=== PATIENT | male | born 1985 | race Two or more races ===

== ENCOUNTER 2017-07-29 19:58 | Emergency (ER) | payer MEDICAID ==
[~2017-07-29] VITALS: Ht 170.2 cm; Wt 108.9 kg
[~2017-07-29 19:58] MED LIST: ACYCLOVIR400 MG ORAL; IBUPROFEN600 MG ORAL; POLYTRIM OP SOL10 ML OPHTHALM; TAMIFLU75 MG ORAL
[2017-07-29 20:30] VITALS: BP 130/86
[2017-07-29] MEDS ORDERED: Morphine Sulfate 2mg/ml Inj IVP ONE (20:45)
[2017-07-29] MEDS ORDERED: Lidocaine 2% Visc 15ml soln ORAL ONE (20:45)
[2017-07-29] MEDS ORDERED: Mylanta II UD 30ml ORAL ONE (20:45)
[2017-07-29 21:35] LABS: BASOPHILS % (AUTO) 1.4 % (0.0-2.0); LYMPHOCYTES % (AUTO) 20.5 % (20.0-45.0); MEAN CORPUSCULAR HEMOGLOBIN 29.8 PG (27.0-31.0); MEAN CORPUSCULAR HGB CONC 31.2 G/DL (32.0-36.0); MEAN CORPUSCULAR VOLUME 95 FL (80-99); MEAN PLATELET VOLUME 7.3 FL (6.5-10.1); NEUTROPHILS % (AUTO) 70.2 % (45.0-75.0); PLATELET COUNT 230 K/UL (150-450); RED CELL DISTRIBUTION WIDTH 12.2 % (11.6-14.8); WHITE BLOOD COUNT 10.2 K/UL (4.8-10.8)
[2017-07-29 21:46] LABS: APPEARANCE,URINE CLEAR; KETONES,URINE NEGATIVE (NEGATIVE); LEUKOCYTE ESTERASE ,URINE NEGATIVE (NEGATIVE); NITRITE,URINE NEGATIVE (NEGATIVE); PH,URINE 6.5 (4.5-8.0); PROTEIN,URINE NEGATIVE (NEGATIVE); UROBILINOGEN,URINE NORMAL MG/DL (0.0-1.0)
[2017-07-29 21:59] LABS: ANION GAP 10 mmol/L (5-15); CALCIUM 9.4 MG/DL (8.5-10.1); CARBON DIOXIDE 27 MMOL/L (21-32); CHLORIDE 104 MMOL/L (98-107); CREATININE 0.9 MG/DL (0.55-1.30); GLOMERULAR FILTRATION RATE > 60 mL/min (>60); POTASSIUM 4.1 MMOL/L (3.5-5.1); SODIUM 141 MMOL/L (136-145)
[2017-07-29 22:04] LABS: ALANINE AMINOTRANSFERASE 295 U/L (12-78); ASPARTATE AMINO TRANSFERASE 120 U/L (15-37); LIPASE 132 U/L (73-393); TOTAL PROTEIN 7.9 G/DL (6.4-8.2)
[2017-07-29 22:05] VITALS: BP 132/87
--- NOTE | 2017-07-29 23:36 | Emergency Room Report ---
History of Present Illness General Chief Complaint: Abdominal Pain Source: Patient, Significant Other Present Illness HPI Patient with 2-3 days of RUQ pain. Constant and somewhat worsening. Radiates to back. 03/29. No vomiting. Does drink alcohol - beer, not every day. No vomit blood. No melena or blood in stool. No fevers. No medicines taken for pain. Never with this pain in the past. Today also felt dizzy and somewhat disoriented without headache or near syncope. No headache or change in vision. No joint pain, cough, chest pain, rashes. Allergies: Coded Allergies: NO KNOWN DRUG ALLERGIES (Unverified Allergy, Unknown, 08/17/14) Patient History Past Medical History: see triage record Social History: Reports: alcohol use, Denies: smoking, drug use Social History Narrative , works construction Reviewed Nursing Documentation: PMH: Agreed, PSxH: Agreed Nursing Documentation-PM Past Medical History: No Stated History Review of Systems All Other Systems: negative except mentioned in HPI Physical Exam Vital Signs Date Time Temp Pulse Resp B/P (MAP) Pulse Ox O2 Delivery O2 Flow Rate FiO2 07/29/17 20:01 99.3 91 18 141/87 99 Room Air Sp02 EP Interpretation: reviewed, normal General Appearance: well appearing, no apparent distress, GCS 15 Head: normocephalic Eyes: bilateral eye normal inspection, bilateral eye PERRL ENT: moist mucus membranes Neck: supple Respiratory: lungs clear, normal breath sounds Cardiovascular #1: regular rate, rhythm Cardiovascular #2: 2+ radial (R) Gastrointestinal: normal inspection, normal bowel sounds, no mass, non- distended, no guarding, no rebound, tenderness - RUQ, overweight Musculoskeletal: back normal, gait/station normal, normal range of motion Neurologic: alert, oriented x3, motor strength/tone normal, DTRs symmetric, sensory intact, normal gait, speech normal, grossly normal Psychiatric: mood/affect normal Skin: normal inspection, warm/dry Medical Decision Making Diagnostic Impression: Primary Impression: Abdominal pain Qualified Codes: R10.11 - Right upper quadrant pain ER Course Patient with RUQ pain. DDx: gastritis, PUD, mohit, GERD, diverticulitis, hepatitis amongst others. Evaluation with EKG, CXR, Abd films and labs. Treatment with IV hydration, pepcid, analgesia and mylanta/lidocaine. EKG without injury. CXR clear. ABD with increased gas. Labs with slight elevation of LFTS (and glucose). Normal WBC and H/H. Pain resolved with treatment. Discussed treatment plan. Considerations PUD/gastritis, gall bladder disease. Need for followup with PMD and possible GI consultation. Patient stable for outpatient observation and treatment. Laboratory Tests Test 07/29/17 21:13 White Blood Count 10.2 K/UL (4.8-10.8) Red Blood Count 5.40 M/UL (4.70-6.10) Hemoglobin 16.1 G/DL (14.2-18.0) Hematocrit 51.6 % (42.0-52.0) Mean Corpuscular Volume 95 FL (80-99) Mean Corpuscular Hemoglobin 29.8 PG (27.0-31.0) Mean Corpuscular Hemoglobin Concent 31.2 G/DL (32.0-36.0) L Red Cell Distribution Width 12.2 % (11.6-14.8) Platelet Count 230 K/UL (150-450) Mean Platelet Volume 7.3 FL (6.5-10.1) Neutrophils (%) (Auto) 70.2 % (45.0-75.0) Lymphocytes (%) (Auto) 20.5 % (20.0-45.0) Monocytes (%) (Auto) 7.0 % (1.0-10.0) Eosinophils (%) (Auto) 1.0 % (0.0-3.0) Basophils (%) (Auto) 1.4 % (0.0-2.0) Prothrombin Time 10.0 SEC (9.30-11.50) Prothrombin Time INR 1.0 (0.9-1.1) PTT 29 SEC (23-33) Urine Color Pale yellow Urine Appearance Clear Urine pH 6.5 (4.5-8.0) Urine Specific [place] 1.010 (1.005-1.035) Urine Protein Negative (NEGATIVE) Urine Glucose (UA) Negative (NEGATIVE) Urine Ketones Negative (NEGATIVE) Urine Occult Blood Negative (NEGATIVE) Urine Nitrite Negative (NEGATIVE) Urine Bilirubin Negative (NEGATIVE) Urine Urobilinogen Normal MG/DL (0.0-1.0) Urine Leukocyte Esterase Negative (NEGATIVE) Sodium Level 141 MMOL/L (136-145) Potassium Level 4.1 MMOL/L (3.5-5.1) Chloride Level 104 MMOL/L (98-107) Carbon Dioxide Level 27 MMOL/L (21-32) Anion Gap 10 mmol/L (5-15) Blood Urea Nitrogen 15 mg/dL (7-18) Creatinine 0.9 MG/DL (0.55-1.30) Estimate Glomerular Filtration Rate > 60 mL/min (>60) Glucose Level 122 MG/DL (74-106) H Calcium Level 9.4 MG/DL (8.5-10.1) Total Bilirubin 0.4 MG/DL (0.2-1.0) Aspartate Amino Transferase (AST) 120 U/L (15-37) H Alanine Aminotransferase (ALT) 295 U/L (12-78) H Alkaline Phosphatase 91 U/L (46-116) Total Creatine Kinase 109 U/L (26-308) Total Protein 7.9 G/DL (6.4-8.2) Albumin 3.9 G/DL (3.4-5.0) Globulin 4.0 g/dL Albumin/Globulin Ratio 1.0 (1.0-2.7) Lipase 132 U/L (73-393) EKG Diagnostic Results Rate: normal Rhythm: NSR ST Segments: no acute changes Rhythm Strip Diag. Results EP Interpretation: yes Rhythm: NSR, no PVC's, no ectopy Chest X-Ray Diagnostic Results Chest X-Ray Diagnostic Results : Chest X-Ray Ordered: Yes # of Views/Limited/Complete: 1 View Indication: Other Interpretation: no consolidation, no effusion, no pneumothorax, no acute cardiopulmonary disease Impression: No acute disease Electronically Signed by: Jeff Bailey MD Other X-Ray Diagnostic Results Other X-Ray Diagnostic Results : X-Ray ordered: abd # of Views/Limited Vs Complete: 1 View Indication: Pain EP Interpretation: Yes Interpretation: nonspecific bowel gas, no sbo, other - increased gas Impression: No acute disease Electronically Signed by: Jeff Bailey MD Last Vital Signs Date Time Temp Pulse Resp B/P (MAP) Pulse Ox O2 Delivery O2 Flow Rate FiO2 07/29/17 23:50 98.7 88 16 128/84 99 Room Air Status: improved Disposition: HOME, SELF-CARE Condition: Improved Scripts Acetaminophen (Tylenol) 325 Mg Tablet 650 MG ORAL Q6H Y for Prn Pain/Headache/Temp > 101, #20 TAB 0 Refills Prov: Jeff Bailey M.D. 07/29/17 Famotidine (PEPCID) 20 Mg Tablet 20 MG ORAL DAILY, #30 TAB 0 Refills Prov: Jeff Bailey M.D. 07/29/17 Referrals: NOT CHOSEN GUILLERMO/,REFERRING (PCP) Jeff Bailey M.D. Jul 29, 2017 23:36
[2017-07-29] MEDS ORDERED: PEPCID20 MG ORAL (23:38)
[2017-07-29] MEDS ORDERED: TYLENOL325 MG ORAL (23:38)
[2017-07-29 23:45] VITALS: BP 128/84
[2017-07-29 23:50] VITALS: BP 128/84
--- NOTE | 2017-07-30 10:34 | Diagnostic Imaging Report ---
Indication: Chest pain Technique: One view of the chest Comparison: none Findings: Lungs and pleural spaces are clear. Heart size is upper limits normal. Impression: No acute process This agrees with the preliminary interpretation provided by the emergency room physician
--- NOTE | 2017-07-30 10:35 | Diagnostic Imaging Report ---
Indication: Abdominal pain Technique: Supine view of the abdomen Comparison: none Findings: Unremarkable bowel gas pattern. Unusual masses or calcifications. Bladder may be somewhat distended Impression: No acute process This agrees with the preliminary interpretation provided by the emergency room physician
--- NOTE | 2017-07-30 19:22 | Cardiology Report ---
APPROVED REPORT EKG Measurement Heart [id number] Normal sinus rhythm Minimal voltage criteria for LVH, may be normal variant Borderline ECG
== END 2017-07-29 23:50 | disposition home or self-care (01) ==
LOC: EMR 21:20
DX: R10.11 Right upper quadrant pain (principal)
CPT/HCPCS: 36415; 71010; 74000; 80053; 81003; 82550; 83690; 85025; 85610; 85730; 93005; 96361; 96374; 96375; 99284; J2270; J2405; S0028

== ENCOUNTER 2017-08-01 18:29 | Emergency (ER) | payer MEDICAID ==
[~2017-08-01] VITALS: Ht 170.2 cm; Wt 108.9 kg
[~2017-08-01 18:29] MED LIST changes: +PEPCID20 MG ORAL; +TYLENOL325 MG ORAL
[2017-08-01] MEDS ORDERED: ACETAMINOPHEN325 M1 ORAL (18:49)
[2017-08-01] MEDS ORDERED: FAMOTIDINE20 MG ORAL (18:49)
[2017-08-01 18:55] VITALS: BP 145/94
[2017-08-01] MEDS ORDERED: Acetaminophen 500mg (ES) tab ORAL ONE (19:15)
[2017-08-01 20:43] VITALS: BP 122/88
--- NOTE | 2017-08-02 15:13 | Emergency Room Report ---
History of Present Illness General Chief Complaint: Hypertension Source: Patient Present Illness HPI 32-year-old male presents ED complaining of headache x1 day. Headache is frontal, throbbing, nonradiating. Denies photophobia blurry vision. 7 at 10. Denies neck stiffness. Denies fevers chills. Patient states his blood pressure was high at home. Denies history of hypertension but states he's been checking his blood pressure recently and it is been very high. Blood pressure triage 145/94. Denies chest pain or shortness of breath. No other aggravating relieving factors. Denies any other associated symptoms Allergies: Coded Allergies: NO KNOWN DRUG ALLERGIES (Unverified Allergy, Unknown, 08/17/14) Patient History Past Medical History: none Past Surgical History: none Pertinent Family History: none Social History: Denies: smoking, alcohol use, drug use Immunizations: UTD Reviewed Nursing Documentation: PMH: Agreed, PSxH: Agreed Nursing Documentation-PMH Hx Hypertension: Yes Review of Systems All Other Systems: negative except mentioned in HPI Physical Exam Vital Signs Date Time Temp Pulse Resp B/P (MAP) Pulse Ox O2 Delivery O2 Flow Rate FiO2 08/01/17 18:41 99.0 85 17 145/94 95 Room Air Sp02 EP Interpretation: reviewed, normal General Appearance: no apparent distress, alert, GCS 15, non-toxic Head: normocephalic, atraumatic Eyes: bilateral eye normal inspection, bilateral eye PERRL ENT: hearing grossly normal, normal pharynx, no angioedema, normal voice Neck: full range of motion, supple/symm/no masses Respiratory: chest non-tender, lungs clear, normal breath sounds, speaking full sentences Cardiovascular #1: regular rate, rhythm, no edema Cardiovascular #2: 2+ carotid (R), 2+ carotid (L), 2+ radial (R), 2+ radial (L) , 2+ dorsalis pedis (R), 2+ dorsalis pedis (L) Gastrointestinal: normal bowel sounds, non tender, soft, non-distended, no guarding, no rebound Rectal: deferred Genitourinary: normal inspection, no CVA tenderness Musculoskeletal: back normal, gait/station normal, normal range of motion, non- tender Neurologic: alert, oriented x3, responsive, motor strength/tone normal, sensory intact, speech normal Psychiatric: judgement/insight normal, memory normal, mood/affect normal, no suicidal/homicidal ideation Reflexes: 3+ bicep (R), 3+ bicep (L), 3+ tricep (R), 3+ tricep (L), 3+ knee (R) , 3+ knee (L) Skin: normal color, no rash, warm/dry, well hydrated Lymphatic: no adenopathy Medical Decision Making Diagnostic Impression: Primary Impression: Headache Qualified Codes: R51 - Headache Additional Impression: Hypertension Qualified Codes: I10 - Essential (primary) hypertension ER Course Hospital Course 32-year-old male presents ED with headache, blood pressure I Differential diagnoses include: tension headache, migraine, dehydration, intracranial bleed Clinical course Patient placed on stretcher. After initial history and physical I ordered Tylenol, CT Head CT head unremarkable Blood pressure in triage nonemergency elevated. I explained to the patient that his to followup with PMD. Keep records of his blood pressures and if required his PMD can start him on blood pressure medication. Recommend weight loss. i. I feel this is a highly complex case requiring extensive working including EKG/Rhythm strip, Xray/CT/US, Blood/urine lab work, repeat exams while in ED, and administration of strong opiates/narcotics for pain control, admission to hospital or close patient follow up. Diagnosis - headache, hypertension stable and discharged to home with Rx Tylenol. f/up with PMD. return to ED if symptoms recur/worsen. CT/MRI/US Diagnostic Results CT/MRI/US Diagnostic Results : Imaging Test Ordered: CT Head Impression no acute process Last Vital Signs Date Time Temp Pulse Resp B/P (MAP) Pulse Ox O2 Delivery O2 Flow Rate FiO2 08/01/17 20:43 78 20 122/88 100 Room Air 08/01/17 20:20 98.9 Status: improved Disposition: HOME, SELF-CARE Condition: Stable Patient Instructions: Hypertension, [id number] COREEN MALAVE M.D. Aug 02, 2017 15:13
== END 2017-08-01 20:43 | disposition home or self-care (01) ==
LOC: EMR 18:58
DX: R51 Headache (principal); I10 Essential (primary) hypertension
CPT/HCPCS: 70450; 99284

== ENCOUNTER 2017-08-13 10:38 | Emergency (ER) | payer MEDICAID ==
[~2017-08-13] VITALS: Ht 170.2 cm; Wt 108.9 kg
[~2017-08-13 10:38] MED LIST changes: +ACETAMINOPHEN325 M1 ORAL; +FAMOTIDINE20 MG ORAL
[2017-08-13] MEDS ORDERED: NKM (10:54)
--- NOTE | 2017-08-13 11:47 | Diagnostic Imaging Report ---
Indication: Reason For Exam: SOB Technique: XRAY Chest 1v Comparison:07/29/2017 Findings: Heart is normal in size. Linear density is noted in the right lung base. Remainder of the lungs are clear. No pleural fluid. Impression: Atelectasis right base. No other change from previous study.
[2017-08-13] MEDS ORDERED: IBUPROFEN600 MG ORAL (12:01)
[2017-08-13] MEDS ORDERED: PEPCID20 MG ORAL (12:01)
[2017-08-13] MEDS ORDERED: TAMIFLU75 MG ORAL (12:28)
[2017-08-13 12:45] VITALS: BP 129/77
[2017-08-13 12:46] VITALS: BP 129/77
--- NOTE | 2017-08-13 15:55 | Emergency Room Report ---
History of Present Illness General Chief Complaint: Upper Respiratory Illness Source: Patient Present Illness HPI Patient 32-year-old male presented after increased cough and congestion. Patient gradual onset of symptoms. He reports having some associated difficulty breathing. The patient had a nonproductive cough. He had sick contacts at home. Patient had been sick for 2 days. He denied any vomiting or diarrhea. he denied any leg pain or swelling recent travel. The patient had unremarkable past medical history. Allergies: Coded Allergies: NO KNOWN DRUG ALLERGIES (Unverified Allergy, Unknown, 08/17/14) Patient History Past Medical History: see triage record Reviewed Nursing Documentation: PMH: Agreed, PSxH: Agreed Nursing Documentation-PMH Hx Hypertension: Yes Review of Systems All Other Systems: negative except mentioned in HPI Physical Exam Vital Signs Date Time Temp Pulse Resp B/P (MAP) Pulse Ox O2 Delivery O2 Flow Rate FiO2 08/13/17 10:51 101.7 102 22 129/77 95 Room Air General Appearance: well appearing, no apparent distress, alert, GCS 15 Head: normocephalic, atraumatic ENT: hearing grossly normal, normal voice Neck: full range of motion, supple Respiratory: no respiratory distress, speaking full sentences Cardiovascular #1: normal peripheral pulses, no edema, no gallop Musculoskeletal: no calf tenderness Neurologic: normal gait Psychiatric: mood/affect normal Skin: no rash Medical Decision Making Diagnostic Impression: Primary Impression: Viral syndrome ER Course Patient presented for cough. Differential diagnosis included but was not limited to bronchitis, pneumonia, pulmonary embolism, pericarditis, asthma, foreign body. Patient's benign exam and does not appear to require any further imaging or laboratory testing at this time. The patient appears to have viral respiratory infection. He was given prescription for Tamiflu as well as cough medications. Patient shows no respiratory distress . Chest x-ray showed no evidence of pneumonia and atelectasis was present. Patient shows no evidence of circulatory compromise at this time. He appears stable for outpatient treatment. The patient is advised to follow up with primary care doctor in 1-2 days. Patient is advised to return if any worsening condition or if any changes in status that are concerning. This report is dictated with [employer] ham stringer software which may occasionally lead to discrepancies related to use of this software. EKG Diagnostic Results Rate: normal - 87 Rhythm: NSR ST Segments: no acute changes ASA given to the pt in ED: No Last Vital Signs Date Time Temp Pulse Resp B/P (MAP) Pulse Ox O2 Delivery O2 Flow Rate FiO2 08/13/17 12:46 96.8 08/13/17 12:46 69 22 129/77 95 Room Air Status: improved Disposition: HOME, SELF-CARE Condition: Stable Scripts Oseltamivir Phosphate (Tamiflu) 75 Mg Cap 75 MG ORAL TWICE A DAY, #10 CAP Prov: Ravindra Hardy 08/13/17 Famotidine (PEPCID) 20 Mg Tablet 20 MG ORAL BEDTIME, #7 TAB 0 Refills Prov: Ravindra Hardy 08/13/17 Ibuprofen* (MOTRIN*) 600 Mg Tablet 600 MG ORAL Q8H Y for For Pain, #30 TAB 0 Refills Prov: Ravindra Hardy 08/13/17 Patient Instructions: Upper Respiratory Infection, Adult Ravindra Hardy Aug 13, 2017 15:55
--- NOTE | 2017-08-28 00:27 | Cardiology Report ---
APPROVED REPORT EKG Measurement Heart [id number] Normal sinus rhythm Normal ECG
== END 2017-08-13 12:54 | disposition home or self-care (01) ==
LOC: EMR 11:00
DX: B34.9 Viral infection, unspecified (principal); I10 Essential (primary) hypertension
CPT/HCPCS: 71010; 93005; 99283

== ENCOUNTER 2018-03-15 10:23 | Emergency (ER) | payer MEDICAID ==
[~2018-03-15] VITALS: Ht 170.2 cm; Wt 108.9 kg
[~2018-03-15 10:23] MED LIST changes: +NKM
--- NOTE | 2018-03-15 11:08 | Emergency Room Report ---
History of Present Illness General Chief Complaint: Back Pain-No Injury Source: Patient Present Illness HPI 32-year-old healthy male presents with epigastric pain relating to his back, reports it is sharp and severe it started yesterday, can't think of any triggers , reports is worse whenever he moves his thorax. He denies any fevers, trauma, cough, syncope, leg pain, leg swelling, vomiting or diarrhea, but does report nausea, he reports no urinary complaints or hematuria. He reports never had this kind of pain before. He does report drinking alcohol, but not heavily recently. Allergies: Coded Allergies: NO KNOWN DRUG ALLERGIES (Unverified Allergy, Unknown, 08/17/14) Patient History Past Medical History: see triage record Reviewed Nursing Documentation: PMH: Agreed; PSxH: Agreed Nursing Documentation-PMH Hx Hypertension: Yes Review of Systems All Other Systems: negative except mentioned in HPI Physical Exam Vital Signs Date Time Temp Pulse Resp B/P (MAP) Pulse Ox O2 Delivery O2 Flow Rate FiO2 03/15/18 10:31 98.2 72 20 135/90 94 Room Air 98.2 Sp02 EP Interpretation: reviewed, normal General Appearance: alert, non-toxic, mild distress Head: normocephalic Eyes: bilateral eye normal inspection, bilateral eye PERRL, bilateral eye EOMI ENT: normal ENT inspection, hearing grossly normal, normal pharynx, no angioedema, normal voice, moist mucus membranes Neck: normal inspection, full range of motion, supple, supple/symm/no masses Respiratory: chest non-tender, lungs clear, normal breath sounds, chest symmetrical, palpation of chest normal Cardiovascular #1: normal peripheral pulses, regular rate, rhythm Cardiovascular #2: 2+ radial (R), 2+ radial (L) Gastrointestinal: normal inspection, non tender, soft, no mass, no guarding, no rebound Rectal: deferred Genitourinary: normal inspection, no CVA tenderness Musculoskeletal: back normal, gait/station normal, normal range of motion, non- tender, no calf tenderness Neurologic: alert, responsive, wood grainer III-XII nml as tested, motor strength/tone normal, sensory intact, speech normal Psychiatric: judgement/insight normal, memory normal, mood/affect normal, no suicidal/homicidal ideation Skin: normal color, no rash, warm/dry, normal turgor Lymphatic: no adenopathy Medical Decision Making Diagnostic Impression: Primary Impression: Abdominal pain Additional Impression: Fatty liver disease, nonalcoholic ER Course Patient well-appearing, workup revealed evidence of fatty liver with transaminitis secondary to this likely he feels much better, after 1 dose analgesics, and I will discharge him. He was found to have incidental pulmonary nodule, but I did ask him if he is a smoker and he denied this, and therefore he does not need any further workup for that. I explained to him that he is to follow-up with her regular doctor, for likely GI referral for fatty liver disease. I explained to him that nonalcoholic fatty liver disease is important cause liver failure in the [place], and he seemed to understand the gravity of this warning and the importance of follow-up. EKG Diagnostic Results EKG Time: 11:20 EP Interpretation: no st-t changes, no twi Rate: normal Rhythm: NSR ST Segments: no acute changes CT/MRI/US Diagnostic Results CT/MRI/US Diagnostic Results : Imaging Test Ordered: ct chest/abd/pelvis Impression Findings include fatty liver, no other acute pathology, also incidental right pulmonary nodule, but patient is not a smoker, therefore he'll not need any further follow-up for that nodule. Reevaluation Time: 14:30 Last Vital Signs Date Time Temp Pulse Resp B/P (MAP) Pulse Ox O2 Delivery O2 Flow Rate FiO2 03/15/18 10:31 98.2 72 20 135/90 94 Room Air 98.2 Status: improved Reevaluation Impression Patient feels better, abdomen is soft and nontender, he did receive IV analgesics one time however, he does not appear in any severe extremis. Disposition: HOME, SELF-CARE Condition: Stable CANDICE FLORES M.D Mar 15, 2018 11:08
[2018-03-15] MEDS ORDERED: Isovue-300 100ml vial INJ PRN (11:15)
[2018-03-15] MEDS ORDERED: Morphine Sulfate 4mg/ml Inj (IV USE ONLY) IVP ONE (11:15)
[2018-03-15 12:15] LABS: BASOPHILS % (AUTO) 0.9 % (0.0-2.0); EOSINOPHILS % (AUTO) 1.2 % (0.0-3.0); HEMATOCRIT 49.5 % (42.0-52.0); HEMOGLOBIN 16.7 G/DL (14.2-18.0); LYMPHOCYTES % (AUTO) 26.2 % (20.0-45.0); MEAN CORPUSCULAR VOLUME 92 FL (80-99); MONOCYTES % (AUTO) 7.6 % (1.0-10.0); NEUTROPHILS % (AUTO) 64.1 % (45.0-75.0); PLATELET COUNT 196 K/UL (150-450); RED BLOOD COUNT 5.36 M/UL (4.70-6.10); RED CELL DISTRIBUTION WIDTH 11.8 % (11.6-14.8); WHITE BLOOD COUNT 7.2 K/UL (4.8-10.8)
[2018-03-15 12:18] LABS: ANION GAP 9 mmol/L (5-15); APPEARANCE,URINE CLEAR; BILIRUBIN, URINE NEGATIVE (NEGATIVE); BLOOD UREA NITROGEN 9 mg/dL (7-18); CALCIUM 9.2 MG/DL (8.5-10.1); CARBON DIOXIDE 25 MMOL/L (21-32); CHLORIDE 105 MMOL/L (98-107); CREATININE 0.7 MG/DL (0.55-1.30); GLUCOSE, URINE (UA) NEGATIVE (NEGATIVE); KETONES,URINE NEGATIVE (NEGATIVE); LEUKOCYTE ESTERASE ,URINE NEGATIVE (NEGATIVE); NITRITE,URINE NEGATIVE (NEGATIVE); PH,URINE 7 (4.5-8.0); POTASSIUM 3.8 MMOL/L (3.5-5.1); PROTEIN,URINE NEGATIVE (NEGATIVE); SODIUM 139 MMOL/L (136-145); UROBILINOGEN,URINE NORMAL MG/DL (0.0-1.0)
[2018-03-15 12:22] LABS: ALANINE AMINOTRANSFERASE 462 U/L (12-78); ALBUMIN 3.8 G/DL (3.4-5.0); ALBUMIN/GLOBULIN RATIO 0.9 (1.0-2.7); ALKALINE PHOSPHATASE 65 U/L (46-116); ASPARTATE AMINO TRANSFERASE 216 U/L (15-37); BILIRUBIN,TOTAL 0.5 MG/DL (0.2-1.0)
[2018-03-15 12:23] LABS: COLOR,URINE YELLOW
[2018-03-15 13:02] VITALS: BP 110/69
--- NOTE | 2018-03-15 14:39 | Diagnostic Imaging Report ---
INDICATION: Reason For Exam: PAIN TECHNIQUE: IV administration nonionic contrast. No oral contrast, per emergency room physician request Spiral acquisitions obtained through the chest, abdomen, and pelvis. Multiplanar reconstructions were generated. Total dose length product 2689.62 mGycm. CTDIvol(s) 28.58,26.79 mGy. Radiation dose was minimized using automated exposure control COMPARISON: none FINDINGS Chest: No evidence of thoracic aortic aneurysm or dissection. Normal heart size. No pericardial effusion. The lungs demonstrate minimal atelectasis or scarring at both lung bases. There is a 2 mm nodule in the right upper lobe, image 33 of series 7. Lungs are otherwise clear. No infiltrates, effusions, pneumothorax, or masses No mediastinal or hilar mass or adenopathy. No pericardial effusion. No axillary or chest wall mass or adenopathy. The included portions of the thyroid are unremarkable. The esophagus is unremarkable. The bones are unremarkable. Abdomen pelvis: No evidence of abdominal aortic aneurysm or dissection demonstrated. The appendix is normal. No evidence of diverticulosis or diverticulitis. No small bowel distention. No free or loculated intraperitoneal air or fluid is evident. There is a small fat-containing left inguinal hernia. The liver demonstrates diffuse low attenuation, consistent with diffuse fatty change. No focal abnormality. The gallbladder, bile ducts, pancreas, spleen, adrenals, kidneys are unremarkable. No retroperitoneal or mesenteric mass or adenopathy. No pelvic mass or adenopathy. The bones are unremarkable. IMPRESSION: No acute abnormality Fatty liver 2 mm right lower lobe nodule. If there is no significant smoking history or other risk factors for lung carcinoma, no further follow-up is necessary. If there are significant risk factors, then follow-up chest CT in 6-12 months is recommended Incidental finding small fat-containing left inguinal hernia Findings discussed by phone with Dr. Pope at the time of interpretation The CT scanner at [facility] [place] is accredited by the [employer] and the scans are performed using protocols designed to limit radiation exposure to as low as reasonably achievable to attain images of sufficient resolution adequate for diagnostic evaluation.
[2018-03-15 14:52] VITALS: BP 114/67
--- NOTE | 2018-03-17 14:52 | Cardiology Report ---
APPROVED REPORT EKG Measurement Heart [id number] Normal sinus rhythm Normal ECG
== END 2018-03-15 14:53 | disposition home or self-care (01) ==
LOC: EMR 11:12
DX: R10.13 Epigastric pain (principal); K76.0 Fatty (change of) liver, not elsewhere classified; I10 Essential (primary) hypertension
CPT/HCPCS: 36415; 71260; 74177; 80053; 81003; 83690; 84484; 85025; 93005; 96361; 96374; 99284; J2270; Q9967